=== PATIENT | female | born 1970 | race Caucasian/White ===

== ENCOUNTER 2019-01-05 09:41 | Emergency (ER) | payer MEDICAID ==
[~2019-01-05] VITALS: Ht 165.1 cm; Wt 79.4 kg
--- NOTE | 2019-01-05 09:53 | NUR ---
TO ED 08 WITH STEADY GAIT.
[2019-01-05 09:56] VITALS: BP 153/94
--- NOTE | 2019-01-05 09:57 | NUR ---
Dr. Ramirez is evaluating the patient at bedside.
[2019-01-05] MEDS ORDERED: ONDANSETRON 4 MG ODT PO ONE (10:00)
[2019-01-05] MEDS ORDERED: KETOROLAC 60 MG/2 ML VIAL IM ONE (10:00)
--- NOTE | 2019-01-05 10:02 | NUR ---
PATIENT PRESENTS TO ED WITH BLOODY DIARRHEA X 1 MONTH. PT CLAIMS THAT HER "ULCER IS BLEEDING." PT ALSO COMPLAINS OF 8/10 SHARP ABDOMINAL PAIN ON R SIDE X 1 DAY. +NAUSEA +DIARRHEA -VOMITING -URINARY SYMPTOMS. VSS; PATIENT POSITIONED FOR COMFORT; HOB ELEVATED; BEDRAILS UP X2; BED DOWN. ER SAW PATIENT. LBM: THIS AM. PT ON MENOPAUSE. PMH: HTN, GASTRIC ULCER MEDS: NONE ALLERGIES: NONE
[2019-01-05 10:29] LABS: BASOPHILS % (AUTO) 0.7 % (0.0-2.0); EOSINOPHILS # (AUTO) 0.1 K/uL (0-0.4); EOSINOPHILS % (AUTO) 1.4 % (0.0-4.0); HEMATOCRIT 35.5 % (36-48); HEMOGLOBIN 11.6 g/dL (12.0-16.0); LYMPHOCYTES # (AUTO) 1.8 K/uL (2.5-16.5); LYMPHOCYTES % (AUTO) 28.4 % (20.5-51.1); MEAN CORPUSCULAR HEMOGLOBIN 29 pg (27-31); MEAN CORPUSCULAR HGB CONC 33 g/dL (33-37); MEAN CORPUSCULAR VOLUME 87.6 fL (80-94); MONOCYTES # (AUTO) 0.3 K/uL (0.8-1.0); MONOCYTES % (AUTO) 5.1 % (1.7-9.3); NEUTROPHILS # (AUTO) 4.1 K/uL (1.8-7.7); NEUTROPHILS % (AUTO) 64.4 % (42.2-75.2); PLATELET COUNT (AUTO) 249 K/uL (140-450); RED BLOOD CELL COUNT(AUTO) 4.06 MIL/uL (4.20-5.40); RED CELL DISTRIBUTION WIDTH 13.6 % (11.6-13.7); WHITE BLOOD COUNT (AUTO) 6.4 K/uL (4.8-10.8)
--- NOTE | 2019-01-05 10:34 | NUR ---
LAB CALLED AND STATED THAT URINE SAMPLE PROVIDED BY PT DID NOT HAVE ENOUGH URINE FOR UA, PROVIDED PT WITH NEW URINE CUP AT THIS TIME.
[2019-01-05 10:40] LABS: ALBUMIN 3.3 g/dL (3.4-5.0); ANION GAP 12.8 (8-16); CARBON DIOXIDE 26.9 mmol/L (21-32); CREATININE 0.9 mg/dL (0.6-1.3); POTASSIUM 3.7 mmol/L (3.5-5.1); TOTAL BILIRUBIN 0.2 mg/dL (0.0-1.0)
[2019-01-05 11:42] LABS: BILIRUBIN,URINE 1+ (NEGATIVE); COLOR,URINE YELLOW (YELLOW); NITRITE, URINE NEGATIVE (NEGATIVE); UGLUCOSE NEGATIVE (NEGATIVE)
[2019-01-05 11:57] LABS: LEUKOCYTE ESTERASE ,URINE 1+ (NEGATIVE)
[2019-01-05 11:58] LABS: BLOOD, URINE TRACE (NEGATIVE)
[2019-01-05 11:59] LABS: APPEARANCE,URINE HAZY (CLEAR); RBC,URINE 0-5 /HPF (0-5)
[2019-01-05 12:06] VITALS: BP 141/76
--- NOTE | 2019-01-05 12:06 | NUR ---
Patient discharged with v/s stable. Written and verbal after care instructions given and explained. Patient alert, oriented and verbalized understanding of instructions. Ambulatory with steady gait. All questions addressed prior to discharge. ID band removed. Patient advised to follow up with PMD. Rx of ZOFRAN, CEPHALEXIN given. Patient educated on indication of medication including possible reaction and side effects. Opportunity to ask questions provided and answered.
== END 2019-01-05 12:04 | disposition home or self-care (01) ==
LOC: MED 09:41
DX: N39.0 Urinary tract infection, site not specified (principal); R19.7 Diarrhea, unspecified; K80.80 Other cholelithiasis without obstruction; I10 Essential (primary) hypertension; F17.210 Nicotine dependence, cigarettes, uncomplicated; Z90.49 Acquired absence of other specified parts of digestive tract; Z71.6 Tobacco abuse counseling
CPT/HCPCS: 36415; 80053; 81001; 81025; 83690; 85025; 87086; 87186; 96372; 99283; J1885; Q0162

== ENCOUNTER 2019-01-05 12:52 | Inpatient (IN) | payer MEDICAID ==
[~2019-01-05] VITALS: Ht 165.1 cm; Wt 79.4 kg
[2019-01-05 13:10] VITALS: BP 102/66
--- NOTE | 2019-01-05 13:10 | NUR ---
Patient ambulated to bed 3 with family. RN evaluating patient at bedside.
--- NOTE | 2019-01-05 13:33 | NUR ---
PT WAS SEEN AT [facility] TODAY AND WAS DISCHARGED WITH RX ZOFRAN AND ANTIBIOTICS FOR UTI. PER PT SHE HAD BLOODY DIARRHEA X1 IN THE LOBBY AFTER DISCHARGE. MED HX: ULCERS AND HTN . PATIENT STATES ABDOMINAL PAIN OF 8/10 AT THIS TIME; VSS; PATIENT POSITIONED FOR COMFORT; HOB ELEVATED; BEDRAILS UP X2; BED DOWN. ER MD MADE AWARE OF PT STATUS.
[2019-01-05] MEDS ORDERED: NACL 0.9% 1,000 ML IV ONE (13:35)
--- NOTE | 2019-01-05 13:36 | NUR ---
Patient being evaluated by physician at bedside.
[2019-01-05 14:08] LABS: BASOPHILS # (AUTO) 0.1 K/uL (0.00-0.22); BASOPHILS % (AUTO) 0.9 % (0.0-2.0); EOSINOPHILS # (AUTO) 0.1 K/uL (0-0.4); EOSINOPHILS % (AUTO) 0.9 % (0.0-4.0); HEMATOCRIT 32.6 % (36-48); HEMOGLOBIN 10.7 g/dL (12.0-16.0); LYMPHOCYTES # (AUTO) 1.8 K/uL (2.5-16.5); MEAN CORPUSCULAR HEMOGLOBIN 29 pg (27-31); MEAN CORPUSCULAR HGB CONC 33 g/dL (33-37); MEAN CORPUSCULAR VOLUME 88.1 fL (80-94); MONOCYTES # (AUTO) 0.3 K/uL (0.8-1.0); MONOCYTES % (AUTO) 3.8 % (1.7-9.3); NEUTROPHILS # (AUTO) 4.6 K/uL (1.8-7.7); NEUTROPHILS % (AUTO) 67.4 % (42.2-75.2); PLATELET COUNT (AUTO) 262 K/uL (140-450); RED CELL DISTRIBUTION WIDTH 13.7 % (11.6-13.7); WHITE BLOOD COUNT (AUTO) 6.8 K/uL (4.8-10.8)
[2019-01-05 14:18] LABS: ANION GAP 10.6 (8-16); CARBON DIOXIDE 29.5 mmol/L (21-32); POTASSIUM 4.1 mmol/L (3.5-5.1)
[2019-01-05 14:26] LABS: PROTHROMBIN TIME 9.6 secs (10.8-13.4)
--- NOTE | 2019-01-05 14:40 | NUR ---
NS BOLUS COMPLETED, PT IS ASLEEP IN BED, NO S/S OF DISTRESS, NO S/S OF PAIN.
[2019-01-05] MEDS: NACL 0.9% 1,000 ML IV SCH (15:29)
[2019-01-05] MEDS ORDERED: DOCUSATE SODIUM 100 MG GELCAP PO PRN (15:30)
[2019-01-05] MEDS ORDERED: HYDROcodone/APAP 5/325 MG 1 TAB TAB PO PRN (15:30)
[2019-01-05] MEDS ORDERED: LORazepam 2 MG/ML VIAL IM/IVP PRN (15:30)
[2019-01-05] MEDS ORDERED: ONDANSETRON 4 MG/2 ML VIAL IM/IVP PRN (15:30)
[2019-01-05] MEDS ORDERED: MORPHINE SULFATE 2 MG/ML SYR IVP PRN (15:30)
[2019-01-05] MEDS ORDERED: ACETAMINOPHEN 325 MG TAB PO PRN (15:30)
[2019-01-05 16:00] VITALS: BP 127/84
--- NOTE | 2019-01-05 16:00 | NUR ---
Received report from ER nurse Corry. Pt is in stable condition. Vitals signs were WNL. Admission assessment done on patient. IV line intact. No C/O pain. No distress noted. Boyfriend by bedside. Call light in reach.
--- NOTE | 2019-01-05 16:00 | NUR ---
Pt transferred to Med/Surg ROOM 106A via WHEELCHAIR, ALL BELONGINGS GOES WITH PATIENT, REPORT GIVEN TO VENKATA CUEVAS AT BEDSIDE, PT IS IN STABLE CONDITION, VSS, DENIES PAIN.
[2019-01-05 16:19] LABS: MAGNESIUM 1.6 mg/dL (1.8-2.4); THYROID STIMULATING HORMONE 1.81 uIU/mL (0.34-3.74)
--- NOTE | 2019-01-05 17:30 | NUR ---
Report given to headrig sawyer nurse. Pt in stable condition. Call light in reach.
[2019-01-05 18:26] LABS: BENZODIAZEPINE, URINE NEG. ng/mL (NEG <=200); CANNABINOID, URINE POS. ng/mL (NEG <=50); COCAINE, URINE NEG. ng/mL (NEG <=300); OPIATE, URINE NEG. ng/mL (NEG <=2000); PHENCYCLIDINE SCREEN,URINE NEG. ng/mL (NEG <=25)
[2019-01-05 18:27] LABS: BARBITURATE, URINE NEGATIVE ng/ml (NEG <=200)
[2019-01-05 18:29] LABS: BARBITURATE, URINE NEGATIVE ng/ml (NEG <=200); BENZODIAZEPINE, URINE NEGATIVE ng/mL (NEG <=200); COCAINE, URINE NEGATIVE ng/mL (NEG <=300); OPIATE, URINE NEGATIVE ng/mL (NEG <=2000); PHENCYCLIDINE SCREEN,URINE NEGATIVE ng/mL (NEG <=25)
[2019-01-05 18:30] LABS: CANNABINOID, URINE POSITIVE ng/mL (NEG <=50)
[2019-01-05] MEDS ORDERED: MAGNESIUM OXIDE 400 MG TAB PO SCH (18:35)
--- NOTE | 2019-01-05 19:30 | NUR ---
SEEN PT SLEEPING SOUNDLY. SPOUSE AT BEDSIDE. IVF INFUSING WELL.
--- NOTE | 2019-01-05 20:50 | NUR ---
SEEN PT SLEEPING SOUNDLY. ULTRASOUND HERE TO DO KUB. VITAL SIGNS CHECKED. PT DENIES DISCOMFORT. PT'S ACCIDENTALLY CAME OFF. WILL INSERT NEW ONE.
[2019-01-05 21:00] VITALS: BP 153/78
[2019-01-05] MEDS: LACTULOSE 20 GM/30 ML UDC PO SCH (21:05)
[2019-01-05] MEDS: PANTOPRAZOLE 40 MG INJ VIAL IVP SCH (21:05)
--- NOTE | 2019-01-05 21:05 | NUR ---
NEW IV INSERTED ON RIGHT HAND G22 W/ GOOD BLOOD RETURN. PT TOLERATED WELL. IVF RESUMED ORDERED.
--- NOTE | 2019-01-05 23:00 | NUR ---
PT WENT TO THE BATHROOM THEN SPOUSE HERE TO SEE PATIENT. PT DENIES ANY DISCOMFORT. IVF INFUSING WELL.
--- NOTE | 2019-01-06 02:00 | NUR ---
SEEN PT SLEEPING SOUNDLY. IVF INFUSING WELL. CALL LIGHT W/IN REACH.
[2019-01-06 04:00] VITALS: BP 155/85
--- NOTE | 2019-01-06 04:00 | NUR ---
AWAKEN PT. VITAL SIGNS CHECKED. PT DENIES ANY PAIN. IV ACCESS SECURED WITH MORE TAPE. WILL CONTINUE TO MONITOR.
--- NOTE | 2019-01-06 06:00 | NUR ---
AWAKEN PT. PT SIGNED CONSENT FOR RELEASE OF EGD RESULT FROM [facility]. EXPLAINED TO PT ABOUT SIT[facility]. WILL PRINT INFORMATION. PT DENIES ANY OTHER NEEDS. IVF INFUSING WELL.
--- NOTE | 2019-01-06 07:07 | NUR ---
REPORT GIVEN TO DAYSHIFT NURSE FOR CONTINUITY OF CARE.
[2019-01-06 07:12] LABS: BASOPHILS % (AUTO) 0.7 % (0.0-2.0); EOSINOPHILS # (AUTO) 0.1 K/uL (0-0.4); EOSINOPHILS % (AUTO) 1.2 % (0.0-4.0); HEMATOCRIT 26.3 % (36-48); HEMOGLOBIN 8.7 g/dL (12.0-16.0); LYMPHOCYTES # (AUTO) 1.8 K/uL (2.5-16.5); LYMPHOCYTES % (AUTO) 34.2 % (20.5-51.1); MEAN CORPUSCULAR HEMOGLOBIN 29 pg (27-31); MEAN CORPUSCULAR HGB CONC 33 g/dL (33-37); MEAN CORPUSCULAR VOLUME 88.1 fL (80-94); MONOCYTES # (AUTO) 0.3 K/uL (0.8-1.0); MONOCYTES % (AUTO) 5.3 % (1.7-9.3); NEUTROPHILS % (AUTO) 58.6 % (42.2-75.2); PLATELET COUNT (AUTO) 222 K/uL (140-450); RED BLOOD CELL COUNT(AUTO) 2.98 MIL/uL (4.20-5.40); RED CELL DISTRIBUTION WIDTH 13.4 % (11.6-13.7); WHITE BLOOD COUNT (AUTO) 5.2 K/uL (4.8-10.8)
[2019-01-06 07:16] LABS: ANION GAP 12.7 (8-16); CARBON DIOXIDE 24.1 mmol/L (21-32); CREATININE 0.7 mg/dL (0.6-1.3); POTASSIUM 3.8 mmol/L (3.5-5.1)
[2019-01-06] MEDS: NACL 0.9% 1,000 ML IV SCH (08:09)
--- NOTE | 2019-01-06 08:16 | NUR ---
PATIENT HAS BEEN SCREENED AND CATEGORIZED MODERATE NUTRITION RISK. PATIENT WILL BE SEEN WITHIN 3-5 DAYS OF ADMISSION. 01/08/19 01/10/[address]
[2019-01-06] MEDS: LISINOPRIL 5 MG TAB PO SCH (08:34)
[2019-01-06] MEDS: PANTOPRAZOLE 40 MG INJ VIAL IVP SCH ×2 (08:34→20:59)
[2019-01-06] MEDS: LACTOBACILLUS RHAMNOSUS GG 1 EACH CAP PO SCH (08:35)
[2019-01-06] MEDS: FLUoxetine 10 MG CAP PO SCH (08:35)
[2019-01-06] MEDS: LACTULOSE 20 GM/30 ML UDC PO SCH ×3 (08:46→20:58)
[2019-01-06 09:18] LABS: CHOL/HDL RATIO 5.6 (1-4.5)
--- NOTE | 2019-01-06 09:35 | NUR ---
RECEIVED PT FROM NURSE RUIZ FOR CONTINUITY OF CARE
--- NOTE | 2019-01-06 11:17 | NUR ---
Drill Doctor Note: [facility] Patient: Vanessa Monte I : 1970 Age/Sex: 48/F Unit#: [id number] Room/Bed: 106/A User: Adam Garcia Date: 01/06/19 10:56 Type: CM: Discharge Planning Name: FELIPE GUZMÁN [place] Relationship: SIGNIFICANT OTHER Pre-Admission Living Arrangements: Other Other: HOMELESS Prior ADL Independent Current Home Health Name/Tel: N/A Current /02 Name/Tel: N/A Current Hospice Name/Tel: N/A Current Dialysis Name/Tel: N/A Healthcare Decision Maker: Patient Advance Directive No - REFUSED Physician Orders for Life Sustaining Treatment Form No Patient/Family Have Educational Needs No Information Taught: Advance Directive Community Resources Person Taught: Patient Teaching Tools: Community Resources Verbal Factors Affecting Learning: None Participation Level: Active Evaluation: Verbalizes Understanding Needs Additional Education: No Discipline: Case Mgt/Social Svcs Tentative Discharge Plan/Destination: No Needs Identified Will require assistance post discharge: No Referred to Family Day Carer: No Tentative Discharge Plan Summary: Patient is a 48 year old female admitted for GI bleed. Patient has medical hx of gastric ulcers, HTN, bipolar disorder, depression, and anxiety. Patient stated that she is homeless and has been living in her car. Patient denied mental health history and substance use history, however medical chart was inconsistent with information provided. DANO educated patient on advanced directive and provided patient with homeless resources. DANO also provided resources to low cost clinic due to patient not having a PCP. Patient stated she would arrange her living situation with the resources provided. DANO will follow up as needed. Signature: WILLIAM Timmons Date: Jan 06, 2019 Time: 11:14
--- NOTE | 2019-01-06 11:53 | NUR ---
PT IS SLEEPING, NO S/S OF ACUTE DISTRESS.
--- NOTE | 2019-01-06 15:57 | NUR ---
DISCHARGE PLANNING : 41 YRS OLD FEMALE ADMITTED FROM ER, WITH A DX OF GI BLEEDING. HX OF GASTRIC ULCER BIPOLAR DISORDER A/OX4 LIVES IN HER CAR (HOMELESS) SS WILL FOLLOW UP. AMBULATE WITH NO ASSISTANCE AND NO NEED HELP TO PERFORM ADL'S IVF GIVEN AT ER , GI CONSULTED D/C PLAN SOCIAL SERVICE CONSULT FOR HOMELESSNESS. CM TO F/U
[2019-01-06 16:00] VITALS: BP 137/79
--- NOTE | 2019-01-06 18:07 | NUR ---
PT EATING DINNER, VISITING WITH SO AT BEDSIDE. NO S/S OF ACUTE DISTRESS.
--- NOTE | 2019-01-06 19:22 | NUR ---
ENDORSED PT TO DYNAMITE RECLAIMER NURSE IN STABLE CONDITION.
--- NOTE | 2019-01-06 19:24 | NUR ---
RECEIVED PT FROM BENJAMIN HASTINGS T AAOX4 AMBULATAORY IV ON RT HAND INFUSING WELL;;, DENIES ANYK KPAIN , NOT ACTIVE BLEEDING NOTED VISITOR AT BED SIDE
--- NOTE | 2019-01-06 21:00 | NUR ---
PT REFUSED LACTULOSA , DENIES ANYK KPAIN OR DISCOMFORT
[2019-01-07] VITALS: BP 132/59
--- NOTE | 2019-01-07 | NUR ---
PT REMAINSTABLE SLEEPING WELL DENIES ANY PAIN OR DISCOMFORT
--- NOTE | 2019-01-07 04:00 | NUR ---
PT REMAIN STABLE SLEEPING WELL NOT DISTRESS NOTED NOT DIARRHEA
--- NOTE | 2019-01-07 04:00 | NUR ---
PT REMAIN STABLE AMBULATES TO THE RESTROOM, NOT DISTRESS NOTED NOT DIARRHEA
[2019-01-07] MEDS: NACL 0.9% 1,000 ML IV SCH (05:30)
[2019-01-07 07:01] LABS: BASOPHILS % (AUTO) 0.4 % (0.0-2.0); EOSINOPHILS # (AUTO) 0.1 K/uL (0-0.4); EOSINOPHILS % (AUTO) 1.1 % (0.0-4.0); HEMATOCRIT 24.6 % (36-48); HEMOGLOBIN 8.2 g/dL (12.0-16.0); LYMPHOCYTES # (AUTO) 1.7 K/uL (2.5-16.5); LYMPHOCYTES % (AUTO) 25.7 % (20.5-51.1); MEAN CORPUSCULAR HEMOGLOBIN 29 pg (27-31); MEAN CORPUSCULAR HGB CONC 33 g/dL (33-37); MEAN CORPUSCULAR VOLUME 88.2 fL (80-94); MONOCYTES # (AUTO) 0.2 K/uL (0.8-1.0); MONOCYTES % (AUTO) 3.7 % (1.7-9.3); NEUTROPHILS # (AUTO) 4.7 K/uL (1.8-7.7); NEUTROPHILS % (AUTO) 69.1 % (42.2-75.2); PLATELET COUNT (AUTO) 201 K/uL (140-450); RED BLOOD CELL COUNT(AUTO) 2.79 MIL/uL (4.20-5.40); RED CELL DISTRIBUTION WIDTH 13.6 % (11.6-13.7); WHITE BLOOD COUNT (AUTO) 6.8 K/uL (4.8-10.8)
[2019-01-07 07:07] LABS: ANION GAP 11.5 (8-16); CARBON DIOXIDE 26.5 mmol/L (21-32); CREATININE 0.7 mg/dL (0.6-1.3)
--- NOTE | 2019-01-07 07:07 | NUR ---
PT SLEEPING WELL DENIES ANY PAIN , PENNDING TO BE SEEN FOR DR Trino GAUTHIER, PT IS ENDORSED TO DAY SHIFT NURSE FOR CONTINUE OF CARE
--- NOTE | 2019-01-07 07:07 | NUR ---
RECEIVED REPORT FROM OBSTETRICIAN GYNECOLOGIST NURSE. PT AAOX4, NO C/O PAIN. IV ON RT HAND 22 GA RUNNING IVF PER ORDER. RESPIRATIONS EVEN AND UNLABORED ON RA. ABD SOFT, ACTIVE BS. SKIN IS INTACT, WARM TO TOUCH. SAFETY MEASURES IN PLACE, CALL LIGHT WITHIN REACH. REVIEWED POC, PT VERBALIZED UNDERSTANDING.
[2019-01-07 08:00] VITALS: BP 129/60
[2019-01-07] MEDS ORDERED: CEPH500C16 PO (08:37)
[2019-01-07] MEDS ORDERED: LISI-424 PO (08:40)
[2019-01-07] MEDS ORDERED: FLUO10CA24 PO (08:40)
[2019-01-07] MEDS ORDERED: PANT40EC PO (08:40)
[2019-01-07] MEDS ORDERED: LACT10CA PO (08:40)
[2019-01-07] MEDS ORDERED: DOCU-299 PO (08:40)
[2019-01-07] MEDS ORDERED: DOCUSATE SODIUM 100 MG GELCAP PO SCH (09:00)
[2019-01-07] MEDS: LACTULOSE 20 GM/30 ML UDC PO SCH ×2 (09:00→09:12)
[2019-01-07] MEDS: PANTOPRAZOLE 40 MG INJ VIAL IVP SCH (09:00)
--- NOTE | 2019-01-07 09:10 | NUR ---
ASSISTED PT TO BATHROOM FOR SHOWER. PT IS WALKING WITH STEADY GAIT. PT IS REFUSING FLU VACCINE AT THIS TIME. WILL NOTIFY PHYSICIAN.
[2019-01-07] MEDS: LACTOBACILLUS RHAMNOSUS GG 1 EACH CAP PO SCH (09:12)
[2019-01-07] MEDS: LISINOPRIL 5 MG TAB PO SCH (09:12)
[2019-01-07] MEDS: FLUoxetine 10 MG CAP PO SCH (09:12)
--- NOTE | 2019-01-07 09:30 | NUR ---
PT HAS BEEN DISCHARGED. ALL PAPERWORK SIGNED, ALL QUESTIONS ANSWERED. ALL BELONGINGS AND COMMUNITY RESOURCES INFO IN PT POSSESSION. IV DISCONTINUED WITH CANNULA INTACT. WRISTBANDS REMOVED. PT REFUSED WHEELCHAIR, TRANSFERRED OUT OF UNIT WITH STEADY GAIT, BOYFRIEND/FELIPE AT SIDE. PT IS IN STABLE CONDITION.
== END 2019-01-07 09:30 | disposition home or self-care (01) | DRG 241 ==
LOC: MED 12:52 → MTU 15:29
PROVIDERS: ADMIT General Practice; ATTEND General Practice
DX: K25.4 Chronic or unspecified gastric ulcer with hemorrhage (principal); E83.42 Hypomagnesemia; D50.0 Iron deficiency anemia secondary to blood loss (chronic); F12.10 Cannabis abuse, uncomplicated; D64.9 Anemia, unspecified; E86.0 Dehydration; N39.0 Urinary tract infection, site not specified; B96.20 Unspecified Escherichia coli [E. coli] as the cause of diseases classified elsewhere; F17.210 Nicotine dependence, cigarettes, uncomplicated; F15.10 Other stimulant abuse, uncomplicated; K59.00 Constipation, unspecified; Z16.19 Resistance to other specified beta lactam antibiotics; K80.20 Calculus of gallbladder without cholecystitis without obstruction; K60.2 Anal fissure, unspecified; I10 Essential (primary) hypertension; F41.9 Anxiety disorder, unspecified; F31.9 Bipolar disorder, unspecified; Z87.11 Personal history of peptic ulcer disease; Z90.49 Acquired absence of other specified parts of digestive tract; Z82.49 Family history of ischemic heart disease and other diseases of the circulatory system; Z79.899 Other long term (current) drug therapy; Z71.51 Drug abuse counseling and surveillance of drug abuser
CPT/HCPCS: 36415; 74018; 80048; 80305; 81025; 82272; 83036; 83735; 84100; 84443; 85025; 85610; 85730; 86886; 86900; 86901; 87081; 93005; 96360; 99285; C9113; J0696; J7030; J7060; Q0092

== ENCOUNTER 2019-02-26 00:09 | Emergency (ER) | payer MEDICAID ==
[~2019-02-26] VITALS: Ht 165.1 cm; Wt 79.4 kg
[~2019-02-26 00:09] MED LIST: CEPH500C16 PO; DOCU-299 PO; FLUO10CA24 PO; LACT10CA PO; LISI-424 PO; PANT40EC PO
[2019-02-26 00:15] VITALS: BP 212/119
--- NOTE | 2019-02-26 00:18 | NUR ---
TO LOBBY VIA W/C A/W BED
--- NOTE | 2019-02-26 00:31 | NUR ---
PT IN W/C TO ER BED 09
--- NOTE | 2019-02-26 00:31 | NUR ---
49 Y/O FEMALE PRESENTS TO ED WITH C/O RUQ ABD PAIN WITH N/V X1 DAY. HX OF GASTRIC ULCERS AND HTN. PT HAS HAD MULTIPLE EPPISODES OF N/V ON 02/25. SKIN DIAPHORETIC. HYPERTENSIVE AT 227/119. PT STATES NOT TAKING HTN MEDS D/T LACK OF RESOURCES (HOMELESS). POSITIONED FOR COMFORT. FAMILY AT BEDSIDE. ER MD AWARE. CONTINUE TO MONITOR.
[2019-02-26] MEDS ORDERED: hydrALAZINE 20 MG/ML VIAL IM ONE (01:20)
[2019-02-26] MEDS ORDERED: DICYCLOMINE HCL LIQUID 10 MG/5 ML UDC PO ONE (01:20)
[2019-02-26] MEDS ORDERED: LIDOCAINE VISCOUS 2% 20 ML UDC PO ONE (01:20)
[2019-02-26] MEDS ORDERED: ALUMINUM HYD/MAG/SIMETHICONE 30 ML UDC PO ONE (01:20)
[2019-02-26] MEDS ORDERED: PANTOPRAZOLE 40 MG TABEC PO ONE (01:20)
--- NOTE | 2019-02-26 01:36 | NUR ---
MEDICATED WITH GI COCKTAIL AND 40 MG PO PROTONIX FOR 10/10 ABD PAIN. WILL REASSESS IN 30 MINS. MEDICATED WITH 20 MG IM HYDRALAZINE FOR HIGH BP 227/119. WILL REASSESS.
--- NOTE | 2019-02-26 02:00 | NUR ---
PT LYING WITH EYES CLOSED IN BED WITH DEEP RESPIRATIONS. AROUSABLE TO VERBAL STIMULI. APPEARS GROGGY. REPORT RELIEF IN PAIN; 0/10. BP SLIGHTLY IMPROVED TO 191/96. DR. RACHEL MADE AWARE. PT OK FOR DISCHARGE.
[2019-02-26 02:36] VITALS: BP 191/96
--- NOTE | 2019-02-26 02:37 | NUR ---
Patient discharged with v/s stable. Written and verbal after care instructions given and explained. Patient alert, oriented and verbalized understanding of instructions. Ambulatory with steady gait. All questions addressed prior to discharge. ID band removed. Patient advised to follow up with PMD. Rx of protonix given. Patient educated on indication of medication including possible reaction and side effects. Opportunity to ask questions provided and answered.
== END 2019-02-26 02:37 | disposition home or self-care (01) ==
LOC: MED 00:09
DX: K29.70 Gastritis, unspecified, without bleeding (principal); I10 Essential (primary) hypertension; Z79.899 Other long term (current) drug therapy
CPT/HCPCS: 96372; 99283; J0360; J7030; 99284

== ENCOUNTER 2019-02-26 05:30 | Emergency (ER) | payer MEDICAID ==
[~2019-02-26] VITALS: Ht 165.1 cm; Wt 95.3 kg
--- NOTE | 2019-02-26 05:32 | NUR ---
PT IN WHEELCHAIR TO BED 02
[2019-02-26 05:35] VITALS: BP 207/86
[2019-02-26] MEDS ORDERED: NACL 0.9% 500 ML IV SCH (05:40)
--- NOTE | 2019-02-26 05:45 | NUR ---
49 Y/O FEMALE, PRESENTS TO ED C/O ABDOMINAL PAIN 12/09. PT WAS RECENTLY D/C FROM THE ED TODAY ALONG WITH PROTONIX RX. PT STATES PAIN IS WORSENED ALONG WITH PERSISTENT NAUSEA AND VOMITING. PT STATES VOMITING 5 TIMES SINCE D/C FROM ED. BS ACTIVE X4 QUADRANTS. ABDOMEN SOFT AND TENDER. PT DENIES ANY DIARRHEA. NO MEDICATIONS TAKEN SINCE PREVIOUS D/C FROM ED. ERMD AWARE. WILL CONTINUE TO MONITOR.
[2019-02-26] MEDS ORDERED: ONDANSETRON 4 MG/2 ML VIAL IVP ONE (05:50)
[2019-02-26] MEDS ORDERED: hydrALAZINE 20 MG/ML VIAL IVP ONE (06:05)
--- NOTE | 2019-02-26 06:17 | NUR ---
BLOOD DRAWN AND SENT TO LAB AT THIS TIME
[2019-02-26 06:22] LABS: BASOPHILS # (AUTO) 0.1 K/uL (0.00-0.22); BASOPHILS % (AUTO) 1.2 % (0.0-2.0); HEMATOCRIT 33.8 % (36-48); HEMOGLOBIN 10.7 g/dL (12.0-16.0); LYMPHOCYTES % (AUTO) 13.6 % (20.5-51.1); MEAN CORPUSCULAR HEMOGLOBIN 23 pg (27-31); MEAN CORPUSCULAR HGB CONC 32 g/dL (33-37); MEAN CORPUSCULAR VOLUME 73.8 fL (80-94); MONOCYTES # (AUTO) 0.2 K/uL (0.8-1.0); MONOCYTES % (AUTO) 2.5 % (1.7-9.3); NEUTROPHILS # (AUTO) 5.8 K/uL (1.8-7.7); NEUTROPHILS % (AUTO) 82.7 % (42.2-75.2); PLATELET COUNT (AUTO) 382 K/uL (140-450); RED BLOOD CELL COUNT(AUTO) 4.58 MIL/uL (4.20-5.40); RED CELL DISTRIBUTION WIDTH 20.3 % (11.6-13.7); WHITE BLOOD COUNT (AUTO) 7.1 K/uL (4.8-10.8)
--- NOTE | 2019-02-26 06:23 | NUR ---
PT UNABLE TO PROVIDE URINE AT THIS TIME.
--- NOTE | 2019-02-26 06:29 | NUR ---
PT TAKEN TO CT
[2019-02-26 06:35] LABS: PROTHROMBIN TIME 9.3 secs (10.8-13.4)
--- NOTE | 2019-02-26 06:35 | NUR ---
PT TAKEN TO XRAY
[2019-02-26 07:05] LABS: ANION GAP 11.1 (8-16); CARBON DIOXIDE 30.5 mmol/L (21-32); POTASSIUM 3.6 mmol/L (3.5-5.1); TOTAL BILIRUBIN 0.2 mg/dL (0.0-1.0)
[2019-02-26 07:06] LABS: ALBUMIN 4.3 g/dL (3.4-5.0)
--- NOTE | 2019-02-26 07:06 | NUR ---
REPORT GIVEN TO NEIL HASTINGS. TRANSFER OF CARE AT THIS TIME. Addendum: 02/26/19 at 0736 by [facility] RECEIVED REPORT FROM YOLANDA HASTINGS. PT IS UNABLE TO PROVIDE URINE AT THIS TIME.
[2019-02-26] MEDS ORDERED: METOCLOPRAMIDE 10 MG/2 ML INJ VIAL IVP ONE (07:40)
[2019-02-26] MEDS ORDERED: MORPHINE SULFATE 4 MG/ML SYR IVP ONE (07:40)
[2019-02-26] MEDS ORDERED: FAMOTIDINE 20 MG/2 ML VIAL IVP ONE (07:40)
[2019-02-26] MEDS ORDERED: KETOROLAC 30 MG/ML VIAL IVP ONE (07:40)
[2019-02-26 07:42] LABS: MAGNESIUM 2.5 mg/dL (1.8-2.4)
[2019-02-26 08:02] LABS: ACETONE, SERUM NEGATIVE (NEGATIVE)
--- NOTE | 2019-02-26 08:52 | NUR ---
lizandro, boyfriend [phone]
--- NOTE | 2019-02-26 09:23 | NUR ---
PT UNABLE TO PROVIDE URINE AT THIS TIME.
[2019-02-26 10:09] VITALS: BP 126/72
--- NOTE | 2019-02-26 10:09 | NUR ---
Patient discharged with v/s stable. Written and verbal after care instructions given and explained. Patient alert, oriented and verbalized understanding of instructions. Ambulatory with steady gait. All questions addressed prior to discharge. ID band removed. Patient advised to follow up with PMD. Rx of REGLAND&TRAMADOL given. Patient educated on indication of medication including possible reaction and side effects. Opportunity to ask questions provided and answered. Addendum: 02/26/19 at 1014 by [facility] PROVIDED RECOURSES DOCUMENT, FOOD AT THIS TIME.
== END 2019-02-26 10:09 | disposition home or self-care (01) ==
LOC: MED 05:30
DX: R10.9 Unspecified abdominal pain (principal); I10 Essential (primary) hypertension; R11.10 Vomiting, unspecified
CPT/HCPCS: 36415; 71045; 74176; 80053; 82009; 83605; 83690; 83735; 83880; 84484; 85025; 85610; 85730; 87040; 93005; 96361; 96374; 96375; 99284; G0482; J0360; J1885; J2270; J2405; J2765; J3490